=== PATIENT | male | born 1945 | race Caucasian/White ===

== ENCOUNTER → 2016-08-09 | Outpatient (CLI) | payer MEDICARE ==
[~2016-08-09] MED LIST: ACET325T38 PO; ALPR.5T PO; ALPR0.5T PO; ALPR1TAB7 PO; ASP81CT PO; ASPI-504 PO; CARV25TA30 PO; CHOL100045 PO; CITA40TA19 PO; CLOP75TA3 PO; CRV25T PO; DULO60CA7 PO; ESCI20TA PO; GLIP10TA13 PO; HCT25T PO; HYDR-33 PO; LEVO125T PO; LISI20TA PO; LSNP10T PO; MELO-255 PO; METF500T4 PO; MINO10TA PO; MINO5POW PO; MULT-518 PO; MULT1TAB69 PO; SIMV40TA2 PO; SULF-228 PO
[2016-08-09 15:47] LABS: ALBUMIN 4.2 g/dL (3.4-5.0); ANION GAP 16.1 MEQ/L (3-15)
== END ==
LOC: LAB 15:04
PROVIDERS: ATTEND Internal Medicine Nephrology
DX: N18.3 Chronic kidney disease, stage 3 (moderate) (principal); I10 Essential (primary) hypertension
CPT/HCPCS: 36415; 80069; 82570; 84156

== ENCOUNTER 2016-08-23 09:02 | Outpatient (RCR) | payer MEDICARE | END 2016-11-21 | disposition home or self-care (01) | LOC: DT 09:02 | PROVIDERS: ATTEND Family Medicine | DX: E11.22 Type 2 diabetes mellitus with diabetic chronic kidney disease (principal) | CPT/HCPCS: 97802 ==

== ENCOUNTER → 2016-08-29 | Outpatient (CLI) | payer MEDICARE | LOC: RAD 15:43 | PROVIDERS: ATTEND Family Medicine | DX: J20.9 Acute bronchitis, unspecified (principal) | CPT/HCPCS: 71020 ==

== ENCOUNTER → 2016-08-29 | Outpatient (REF) | payer MEDICARE ==
[2016-08-29 16:17] LABS: BASOPHILS % (AUTO) 0 % (0-2); EOSINOPHILS # (AUTO) 0.2 10^3uL; EOSINOPHILS % (AUTO) 2 % (0-4); LYMPHOCYTES # (AUTO) 1.8 X10^3; MEAN CORPUSCULAR VOLUME 91 FL (80-100); MEAN PLATELET VOLUME 13.7 FL (6.0-9.5); MONOCYTES # (AUTO) 0.8 X10^3; MONOCYTES % (AUTO) 10 % (3-11); NEUTROPHILS # (AUTO) 5.7 X10^3; NEUTROPHILS % (AUTO) 67 % (51-67); PLATELET COUNT 171 10^3uL (150-450); WHITE BLOOD COUNT 8.44 10^3uL (4.0-11.0)
[2016-08-29 16:18] LABS: MEAN CORPUSCULAR HEMOGLOBIN 32.4 PG (26.0-34.0); MEAN CORPUSCULAR HGB CONC 35.6 g/dL (31.0-37.0)
[2016-08-29 16:29] LABS: ALBUMIN 4.5 g/dL (3.4-5.0); ANION GAP 17.8 MEQ/L (3-15); CALCULATED IONIZED CALCIUM 4.2 mg/dL (3.8-4.6); TOTAL PROTEIN 7.6 g/dL (6.4-8.5)
== END ==
LOC: LAB 15:48
PROVIDERS: ATTEND Family Medicine
DX: I10 Essential (primary) hypertension (principal); J20.9 Acute bronchitis, unspecified; E11.9 Type 2 diabetes mellitus without complications; E03.8 Other specified hypothyroidism
CPT/HCPCS: 80053; 83036; 84443; 85025

== ENCOUNTER → 2016-11-23 | Outpatient (REF) | payer MEDICARE | LOC: LAB 10:19 | PROVIDERS: ATTEND Family Medicine | DX: E11.9 Type 2 diabetes mellitus without complications (principal); E03.8 Other specified hypothyroidism | CPT/HCPCS: 83036; 84443 ==